=== PATIENT | female | born 1985 | race Caucasian/White ===

== ENCOUNTER 2016-06-27 04:24 | Emergency (ER) | payer OTHER ==
[2016-06-27] MEDS ORDERED: HYDROmorphone 1 MG/ML SYRINGE IVP STA ×2 (05:54→08:35)
[2016-06-27] MEDS ORDERED: HYDROmorphone 1 MG/ML SYRINGE ONE ×2 (05:57→08:40)
[2016-06-27] MEDS ORDERED: IOPAMIDOL-300 100 ML VIAL IVP ONE (07:28)
== END 2016-06-27 09:03 | disposition home or self-care (01) ==
DX: R10.30 Lower abdominal pain, unspecified (principal); I10 Essential (primary) hypertension; M79.7 Fibromyalgia
CPT/HCPCS: 36415; 74177; 80053; 81001; 83690; 84702; 85025; 93005; 93010; 96374; 96376; 99284; J1170; Q9967

== ENCOUNTER 2017-04-24 03:48 | Emergency (ER) | payer OTHER ==
[2017-04-24 04:06] VITALS: BP 168/119
--- NOTE | 2017-04-24 04:06 | ED Physician Documentation ---
History of Present Illness - Stated complaint Stated Complaint: SINUS PAIN,CONGESTION - Chief complaint Chief Complaint: Heent - History obtained from History obtained from: Patient (pt is here for a couple days of sinus congestion , pressure, pain with palpation of the sinus, sore throat and cough, no fevers, no rashes, no neck pain .) Review of Systems Constitutional: reports: Myalgias, Fatigue. denies: Fever Eyes: denies: Loss of vision Ears: reports: Ear pain. denies: Drainage/discharge, Tinnitus/ringing Nose: reports: Rhinorrhea / runny nose, Congestion, Sinus pressure / pain Throat: reports: Sore throat Respiratory: reports: Cough. 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 HEENT: None Psych: Depression, Anxiety, Post traumatic stress disorder Musculoskeletal: Fibromyalgia, Fatigue Derm: None - Past Surgical History Past Surgical History: Yes - Present Medications Home Medications: Ambulatory Orders Medication Instructions Recorded Confirmed Bupropion HCl [Wellbutrin Sr] 150 mg PO DAILY 06/27/16 04/24/17 DULoxetine [Cymbalta] 30 mg PO DAILY 06/27/16 04/24/17 Metformin HCl [Metformin HCl ER] 750 mg PO BID 06/27/16 04/24/17 Fluticasone [Flonase] 1 sprays DEVAN DAILY #1 bottle 04/24/17 hydrOXYzine HCl [Hydroxyzine HCl] 10 mg PO QID 04/24/17 04/24/17 - Allergies Allergies/Adverse Reactions: Allergies Allergy/AdvReac Type Severity Reaction Status Date / Time No Known Drug Allergies Allergy Verified 04/24/17 03:54 - Social History Does the pt smoke?: No Smoking Status: Never smoker Does the pt drink ETOH?: No Does the pt have substance abuse?: No - Immunizations Immunizations are current?: No Immunizations: TDAP >10years/unknown - POLST Patient has POLST: No PD ED PE NORMAL - Vitals Vital signs reviewed: Yes - General General: Alert and oriented X 3, No acute distress, Well developed/nourished - HEENT HEENT: Atraumatic, PERRL, Moist mucous membranes, Pharynx benign - Cardiac Cardiac: No murmur - Respiratory Respiratory: No respiratory distress, Clear bilaterally - Derm Derm: Normal color, Warm and dry, No rash - Neuro Neuro: Alert and oriented X 3, No motor deficit, No sensory deficit, Normal speech Eye Opening: Spontaneous Motor: Obeys Commands Verbal: Oriented GCS Score: 15 - Psych Psych: Normal mood, Normal affect PD ED PE EXPANDED - HEENT HEENT: R TM dull, R TM bulging, L TM dull, L TM bulging. No: R TM red, L TM red Results - Vitals Vitals: Vital Signs - 24 hr 04/24/17 03:51 Temperature 36.1 C L Heart Rate 102 H Respiratory 22 Rate Blood Pressure 168/119 H O2 Saturation 100 Oxygen O2 Source Room air PD MEDICAL DECISION MAKING - ED course Complexity details: considered differential, d/w patient ED course: pt looks well. has PE c/W a viral URI and sinus congestion. she states that she has zyrtec at home. will add flonase. no indication for ABX. lungs clear so doubt PNA. pt given return precautions. Departure - Departure Disposition: 01 Home, Self Care Clinical Impression: Sinus congestion, Upper respiratory infection Condition: Good Instructions: ED Sinusitis No Abx Follow-Up: JORGE KRAMER [Primary Care Provider] - Prescriptions: Fluticasone [Flonase] 1 sprays DEVAN DAILY #1 bottle Comments: Recommend that you continue your medication s like we discussed. take the Zyrtec that you have at home as directed on the bottle. Return to the ER for any new or worsening symptoms.
== END 2017-04-24 04:15 | disposition home or self-care (01) ==
LOC: ED 03:48
DX: J34.89 Other specified disorders of nose and nasal sinuses (principal); J06.9 Acute upper respiratory infection, unspecified; I10 Essential (primary) hypertension
CPT/HCPCS: 99282; 99283

== ENCOUNTER 2017-08-08 08:23 | Emergency (ER) | payer OTHER ==
--- NOTE | 2017-08-08 09:17 | ED Physician Documentation ---
PD HPI MHE - Stated complaint Stated Complaint: SI - Chief complaint Chief Complaint: MHE - History obtained from History obtained from: Patient, Family - History of Present Illness Primary symptom: Suicidal ideation, Depression, Anxiety Timing - onset: How many weeks ago (1) Contributing factors: Sig other Similar symptoms before: Diagnosis (depression/anxiety PTSD) Recently seen: Not recently seen - Additional information Additional information: 32-year-old female with history of PTSD and depression has become more depressed and anxious and is now feeling suicidal. She states this stems mostly from her relationship and her marriage. She has been for 12 years there is no infidelity associated with this and there is no substance abuse or violence associated with this. She arrives here today with her and he is able to contribute to the history as well. indicates that he feels that she does not provide much in the marriage as far as helping with work and household and that their agreement had been that she would not have to work outside of the house if she kept up her side of the work. The patient herself has put housework at a low priority and states that she might sleep instead.She is having feelings of worthlessness and heart break. The couple has considered separation, but have not defined plans. states that over their 12 year marriage he was usually on deployment would come home things would be well for a while and about the time that he was started to wonder about her contribution he would be back on deployment. He is now on short duty. Patient states that her plans for suicide or to walk out into the surrounding ground or to take some pills. She does not have a specific plan. She has had one prior attempt to injure herself when she was a teenager. She has never had hospitalization. She has been under treatment for depression and anxiety including some counseling which she found helpful to a certain point and she is discontinued that. There are no children in the marriage and the patient has family back in [place] and she does not want to see them as this is the source of her PTSD. She does have a brother who lives nearby but she does not want to involve him. Review of Systems Constitutional: denies: Fever, Chills, Myalgias Eyes: denies: Decreased vision Ears: denies: Ear pain Nose: reports: Congestion. denies: Rhinorrhea / runny nose Throat: denies: Sore throat Cardiac: denies: Chest pain / pressure, Palpitations Respiratory: denies: Dyspnea, Cough GI: reports: Diarrhea. 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: Breast reduction - Present Medications Home Medications: Ambulatory Orders Medication Instructions Recorded Confirmed Bupropion HCl [Wellbutrin Sr] 150 mg PO DAILY 06/27/16 04/24/17 DULoxetine [Cymbalta] 30 mg PO DAILY 06/27/16 04/24/17 Metformin HCl [Metformin HCl ER] 750 mg PO BID 06/27/16 04/24/17 Fluticasone [Flonase] 1 sprays DEVAN DAILY #1 bottle 04/24/17 hydrOXYzine HCl [Hydroxyzine HCl] 10 mg PO QID 04/24/17 04/24/17 - Allergies Allergies/Adverse Reactions: Allergies Allergy/AdvReac Type Severity Reaction Status Date / Time No Known Drug Allergies Allergy Verified 04/24/17 03:54 - Social History Does the pt smoke?: No Smoking Status: Never smoker Does the pt drink ETOH?: No Does the pt have substance abuse?: No - Immunizations Immunizations are current?: No Immunizations: TDAP >10years/unknown - POLST Patient has POLST: No PD ED PE NORMAL - Vitals Vital signs reviewed: Yes (tachy, tachypneic and hypertensive ) - General General: Alert and oriented X 3, Well developed/nourished, Other (32 y/o female crying with flat affect. ) - HEENT HEENT: Atraumatic, PERRL, EOMI, Ears normal, Moist mucous membranes, Pharynx benign, Dentition benign - Neck Neck: Supple, no meningeal sign, No bony TTP - Cardiac Cardiac: RRR, No murmur - Respiratory Respiratory: No respiratory distress, Clear bilaterally - Abdomen Abdomen: Soft, Non tender, Other (obese) - Back Back: No CVA TTP, No spinal TTP - Derm Derm: Normal color, Warm and dry, No rash - Extremities Extremities: No deformity, No edema - Neuro Neuro: Alert and oriented X 3, No motor deficit, No sensory deficit, Normal speech Eye Opening: Spontaneous Motor: Obeys Commands Verbal: Oriented GCS Score: 15 - Psych Psych: Other (mood is helpless and the affect is sad) Results - Vitals Vitals: Vital Signs - 24 hr 08/08/17 08/08/17 08:26 11:50 Temperature 37.1 C Heart Rate 136 H 99 Respiratory 26 H 20 Rate Blood Pressure 132/107 H 153/120 H O2 Saturation 100 100 Oxygen O2 Source Room air - Labs Labs: Laboratory Tests 08/08/17 08/08/17 08/08/17 09:19 09:24 09:24 WBC 6.9 RBC 5.24 Hgb 15.5 Hct 45.0 MCV 85.7 MCH 29.6 MCHC 34.6 RDW 13.0 Plt Count 294 MPV 7.9 Neut # 4.5 Lymph # 1.9 [place] # 0.4 Eos # 0.1 Baso # 0.1 Absolute Nucleated RBC 0.00 Nucleated RBC % 0.0 Sodium 137 Potassium 3.6 Chloride 105 Carbon Dioxide 23 Anion Gap 9.0 BUN 10 Creatinine 0.5 Estimated GFR (MDRD) 143 Glucose 105 H Calcium 9.4 Total Bilirubin 0.5 AST 19 ALT 23 Alkaline Phosphatase 71 Total Protein 7.6 Albumin 4.4 Globulin 3.2 Albumin/Globulin Ratio 1.4 Lipase 21 L Urine Color YELLOW Urine Clarity CLEAR Urine pH 7.0 Ur Specific [place] 1.020 Urine Protein NEGATIVE Urine Glucose (UA) NEGATIVE Urine Ketones NEGATIVE Urine Occult Blood TRACE-LYSE Urine Nitrite NEGATIVE Urine Bilirubin NEGATIVE Urine Urobilinogen 0.2 (NORMAL) Ur Leukocyte Esterase NEGATIVE Ur Microscopic Review NOT INDICATED Urine Culture Comments NOT INDICATED Salicylates < 6.0 Urine Opiates Screen NEGATIVE Ur Oxycodone Screen NEGATIVE Urine Methadone Screen NEGATIVE Ur Propoxyphene Screen NEGATIVE Acetaminophen < 10 L Ur Barbiturates Screen NEGATIVE Ur Tricyclics Screen NEGATIVE Ur Phencyclidine Scrn NEGATIVE Ur Amphetamine Screen NEGATIVE U Methamphetamines Scrn NEGATIVE U Benzodiazepines Scrn NEGATIVE Urine Cocaine Screen NEGATIVE U Cannabinoids Screen NEGATIVE Ethyl Alcohol < 5.0 PD MEDICAL DECISION MAKING - ED course Complexity details: reviewed results, re-evaluated patient, considered differential, d/w patient, d/w family ED course: 32-year-old female with acute depression and suicidal ideation has issues with her marriage. She does receive q. counseling here in the emergency department and evaluation by the social work assistant. hand worker is able to provide additional resources that are available to the patient and her . She has recommended both marriage counseling and individual counseling. The patient is able to contract for safety. Departure - Departure Disposition: Home, Self Care Clinical Impression: Suicidal ideation Depression Qualifiers: Depression Type: unspecified Qualified Code(s): F32.9 - Major depressive disorder, single episode, unspecified Condition: Stable Instructions: ED Depression Follow-Up: JORGE KRAMER [Primary Care Provider] - Comments: Today in the Emergency Department your blood pressure was elevated. This can happen from the stress of the visit itself, from a current illness or circumstance or from uncontrolled hypertension. If you take blood pressure medications take your usual mediations, have your blood pressure re-checked in an appropriate setting and follow up any elevation with your primary care doctor.
[2017-08-08 09:22] LABS: MUDS CUTOFF CONCENTRATIONS CUTOFF CONC BELOW:
[2017-08-08 09:25] LABS: BILIRUBIN,URINE NEGATIVE (NEGATIVE); GLUCOSE, URINE (UA) NEGATIVE (NEGATIVE); KETONES,URINE (UA) NEGATIVE (NEGATIVE); LEUKOCYTE ESTERASE, URINE NEGATIVE (NEGATIVE); NITRITE,URINE NEGATIVE (NEGATIVE); OCCULT BLOOD,URINE TRACE-LYSE (NEGATIVE); PROTEIN,URINE NEGATIVE (NEGATIVE); UROBILINOGEN,URINE 0.2 (NORMAL) E.U./dL (NORMAL)
[2017-08-08 09:26] LABS: CLARITY,URINE CLEAR (CLEAR)
[2017-08-08 09:32] LABS: BASOPHILS # (AUTO) 0.1 10^3/uL (0.0-0.1); BASOPHILS % (AUTO) 0.9 %; EOSINOPHILS # (AUTO) 0.1 10^3/uL (0.0-0.7); EOSINOPHILS % (AUTO) 1.1 %; HGB - HEMOGLOBIN 15.5 g/dL (12.0-16.0); LYMPHOCYTES # (AUTO) 1.9 10^3/uL (1.5-3.5); MEAN CORPUSCULAR HEMOGLOBIN 29.6 pg (27.0-31.0); MEAN CORPUSCULAR HGB CONC 34.6 g/dL (32.0-36.0); MEAN CORPUSCULAR VOLUME 85.7 fL (81.0-99.0); MEAN PLATELET VOLUME 7.9 fL (7.9-10.8); MONOCYTES # (AUTO) 0.4 10^3/uL (0.0-1.0); MONOCYTES % (AUTO) 6.2 %; NEUTROPHILS # (AUTO) 4.5 10^3/uL (1.5-6.6); NEUTROPHILS % (AUTO) 64.8 %; PLT - PLATELET COUNT 294 10^3/uL (130-450); RED BLOOD COUNT 5.24 10^6/uL (4.20-5.40); WHITE BLOOD COUNT 6.9 x10^3/uL (4.8-10.8)
[2017-08-08 09:34] LABS: AMPHETAMINE SCREEN,URINE NEGATIVE (NEGATIVE); BENZODIAZEPINES SCREEN, URINE NEGATIVE (NEGATIVE); COCAINE SCREEN URINE NEGATIVE (NEGATIVE); METHADONE SCREEN, URINE NEGATIVE (NEGATIVE); METHAMPHETAMINES SCREEN, URINE NEGATIVE (NEGATIVE); OPIATE SCREEN, URINE NEGATIVE (NEGATIVE); OXYCODONE SCREEN, URINE NEGATIVE (NEGATIVE); PROPOXYPHENE SCREEN, URINE NEGATIVE (NEGATIVE); TRICYCLIC ANTIDEPRESSANT,URINE NEGATIVE (NEGATIVE)
[2017-08-08 09:46] LABS: ALBUMIN 4.4 g/dL (3.2-5.5); ALBUMIN/GLOBULIN RATIO 1.4 (1.0-2.2); ALKALINE PHOSPHATASE 71 IU/L (42-121); ALT ALANINE AMINOTRANSFERASE 23 IU/L (10-60); AST ASPARTATE AMINOTRANSFERASE 19 IU/L (10-42); BILIRUBIN,TOTAL 0.5 mg/dL (0.2-1.0); BUN - BLOOD UREA NITROGEN 10 mg/dL (6-20); CALCIUM 9.4 mg/dL (8.5-10.3); CARBON DIOXIDE - CO2 23 mmol/L (21-32); CHLORIDE 105 mmol/L (101-111); CREATININE 0.5 mg/dL (0.4-1.0); GFR - MDRD 143 (>89); GLUCOSE 105 mg/dL (70-100); LIPASE 21 U/L (22-51); SALICYLATE < 6.0 mg/dL; SODIUM 137 mmol/L (135-145); TOTAL PROTEIN 7.6 g/dL (6.7-8.2)
[2017-08-08 09:51] LABS: ACETAMINOPHEN < 10 ug/mL (10-30)
[2017-08-08 13:25] VITALS: BP 115/113
== END 2017-08-08 14:13 | disposition home or self-care (01) ==
LOC: ED 08:23
DX: R45.851 Suicidal ideations (principal); F32.9 Major depressive disorder, single episode, unspecified; F43.10 Post-traumatic stress disorder, unspecified; I10 Essential (primary) hypertension
CPT/HCPCS: 36415; 80053; 80306; 80307; 80320; 80329; 81001; 81003; 83690; 85025; 87086; 99283; 99284